=== PATIENT | female | born 1980 | race African-American/Black ===

== ENCOUNTER 2019-07-07 08:50 | Emergency (ER) | payer SELFPAY ==
[2019-07-07 09:21] LABS: #Basophils 0.1 thou/uL (0.0-0.2); #Eosinphils 0.1 thou/uL (0.0-0.7); #Lymphocytes 1.8 thou/uL (1.20-3.40); #Monocytes 0.5 thou/uL (0.11-0.59); %Basophils 1.2 % (0.0-1.0); %Eosinophils 1.1 % (0.0-10.0); %Lymphocytes 27.9 % (21.0-51.0); %Monocytes 7.7 % (0.0-10.0); %Neutrophils 62.1 % (42.0-75.0); Hemoglobin 14.1 g/dL (12.0-16.0); Mean Corpuscular HGB CONC 33.5 g/dL (32.0-36.0); Mean Corpuscular Hemoglobin 30.9 pg (27.0-31.0); Mean Corpuscular Volume 92.4 fL (78.0-98.0); Mean Platelet Volume 7.7 fL (7.4-10.4); Platelet Count 267 thou/uL (130-400); RBC Distribution Width 13.3 % (11.5-14.5); Red Blood Cell (RBC) Count 4.57 mill/uL (4.20-5.40); White Blood Cell (WBC) Count 6.4 thou/uL (4.8-10.8)
[2019-07-07] MEDS ORDERED: Ondansetron PF 4 MG/2 ML Vial ONE (09:31)
[2019-07-07 09:33] LABS: Bilirubin Negative (Negative); Blood, Urine Trace (Negative); Clarity Turbid (Clear); Glucose, Urine (Dipstick) Normal (Negative); Leukocyte 25 Leu/uL (Negative); Nitrite Negative (Negative); Protein, Urine (Dipstick) 50 mg/dL (Neg-Trace); WBC/HPF 0-3 HPF (0-3)
[2019-07-07 09:37] LABS: Bacteria/HPF 1+ HPF (None Seen)
[2019-07-07 09:38] LABS: Pregnancy Test - Urine (BHCG) Negative (Negative); Pregu Control Background? CLEAR/WHITE (CLR/WHITE); Pregu Control Bar Appear? YES (CONTROL BAR); Specific Gravity 1.028 (1.002-1.036)
[2019-07-07 09:44] LABS: ALT (SGPT) 9 U/L (8-55); AST (SGOT) 15 U/L (5-34); Albumin 4.8 g/dL (3.5-5.0); Alkaline Phosphatase 60 U/L (40-110); Anion Gap 12 mmol/L (10-20); BUN (Urea Nitrogen) 8 mg/dL (7.0-18.7); Bilirubin, Total 0.5 mg/dL (0.2-1.2); Calc. Creatinine Clearance 0 mL/min (70-130); Calcium 9.7 mg/dL (7.8-10.44); Carbon Dioxide 29 mmol/L (22-29); Chloride 102 mmol/L (98-107); Estimated GFR-MDRD 73; Globulin 3.5 g/dL (2.4-3.5); Glucose 93 mg/dL (70-105); Potassium 3.7 mmol/L (3.5-5.1); Protein, Total 8.3 g/dL (6.0-8.3); Sodium 139 mmol/L (136-145)
[2019-07-07 10:00] LABS: CK (CPK) 159 U/L (29-168); Lipase 16 U/L (8-78)
--- NOTE | 2019-07-07 10:36 | CT ---
CT ABDOMEN AND PELVIS WITH IV CONTRAST: HISTORY: Abdominal pain. FINDINGS: There are minimal dependent changes in the lung bases. The liver, spleen, pancreas, adrenal glands, and right kidney are normal. There are cysts in the right kidney, the largest measuring 3.7 cm. No calcified gallstones are noted. No free air, free fluid, or lymphadenopathy is seen in the abdomen or pelvis. A normal-appearing claudia endix is present. Uterus and ovaries are visualized. The small bowel loops are not abnormally dilat ed. There is mild chronic diverticulosis. No acute osseous abnormalities are seen. IMPRESSION: 1. No evidence of appendicitis. 2. Left renal cysts. 3. Mild colonic diverticulosis. POS: OFF
[2019-07-07] MEDS ORDERED: ISOVUE-370 76%-LOCM 1 ML ONE (13:42)
== END 2019-07-07 11:05 | disposition home or self-care (01) ==
LOC: ERS 08:50
DX: R10.9 Unspecified abdominal pain (principal); R11.2 Nausea with vomiting, unspecified; I10 Essential (primary) hypertension; F31.9 Bipolar disorder, unspecified; F17.210 Nicotine dependence, cigarettes, uncomplicated
CPT/HCPCS: 74177; 80053; 81003; 81015; 81025; 82550; 83690; 85025; 96361; 96374; J2405; Q9966

== ENCOUNTER 2019-07-30 08:58 | Outpatient (CLI) | payer MEDICAID ==
--- NOTE | 2019-07-30 10:02 | MMO ---
Bilateral MAMMO Bilat Diag [facility]. CLINICAL HISTORY: Patient is 39 years old and is seen for diagnostic exam,lump or thickening and non-bloody discharge in the left breast. The patient has the following family history of breast cancer: paternal grandmother, malignant (generic); paternal and paternal aunt, malignant (generic), ovarian. The patient has no personal history of cancer. VIEWS: The views performed were: bilateral craniocaudal with tomosynthesis; bilateral mediolateral oblique with tomosynthesis; and bilateral mediolateral with tomosynthesis. FILMS COMPARED: The present examination has been compared to prior imaging studies performed at [facility] on 07/30/2019, and at [facility] on 01/11/2017. This study has been interpreted with the assistance of computer-aided detection. MAMMOGRAM FINDINGS: The breasts are heterogeneously dense, which could obscure a lesion on mammography. There are no suspicious masses, suspicious calcifications, or new areas of architectural distortion. There are no mammographic or sonographic abnormalities to explain the patient's breast pain or left breast discharge. The patient is referred back to her clinician. Negative imaging findings should not preclude further evaluation if clinical findings are suspicious. IMPRESSION: THERE IS NO MAMMOGRAPHIC EVIDENCE OF MALIGNANCY. THE RESULTS OF THIS EXAM WERE SENT TO THE PATIENT. ACR BI-RADS Category 1 - Negative MAMMOGRAPHY NOTE: 1. A negative mammogram report should not delay a biopsy if a dominant of clinically suspicious mass is present. 2. Approximately 10% to 15% of breast cancers are not detected by mammography. 3. Adenosis and dense breasts may obscure an underlying neoplasm. Reported by: MONROE AMEZQUITA MD Electonically Signed: [id number]
--- NOTE | 2019-07-30 11:37 | ULT ---
LIMITED LEFT BREAST ULTRASOUND: Date: 07/30/19 PROVIDED CLINICAL HISTORY: Left breast pain and discharge. FINDINGS: Limited sonographic interrogation was performed of the left breast in the regions of patient focal pa in, as well as within the retroareolar region of the left breast. There is no sonographically apparen t concerning mass. There is no evidence for significant ductal dilatation or evidence for intraductal mass. Simple appearing cysts and intramammary lymph nodes are seen. IMPRESSION: BI-RADS Category 2 - Benign findings. Negative/benign imaging findings should not preclude further ev aluation of a clinically suspicious abnormality. The patient is referred back to her clinician. POS: OFF
== END 2019-07-30 08:59 | disposition home or self-care (01) ==
LOC: BICMAMMO 08:58 → EDSTATUS 09:00
PROVIDERS: ATTEND Nurse Practitioner Family
DX: N64.52 Nipple discharge (principal); N63.0 Unspecified lump in unspecified breast
CPT/HCPCS: 77066; G0279